=== PATIENT | female | born 1950 | race Caucasian/White ===

== ENCOUNTER 2018-05-21 06:06 | Day surgery (SDC) | payer MEDICARE, OTHER ==
[2018-05-21] MEDS ORDERED: LIDOCAINE 2% (SDV) 5 ML INJ (07:37)
[2018-05-21] MEDS ORDERED: PROPOFOL 60 ML (07:37)
== END 2018-05-21 11:07 | disposition home or self-care (01) ==
LOC: GIL 06:06
DX: R19.4 Change in bowel habit (principal); K21.9 Gastro-esophageal reflux disease without esophagitis; K29.70 Gastritis, unspecified, without bleeding; K64.8 Other hemorrhoids; E78.5 Hyperlipidemia, unspecified; E11.9 Type 2 diabetes mellitus without complications; I10 Essential (primary) hypertension
CPT/HCPCS: 43239; 88305